=== PATIENT | female | born 1980 | race American Indian/Alaskan Native ===

== ENCOUNTER 2020-05-05 21:14 | Emergency (ER) | payer OTHER, MEDICAID, SELFPAY ==
[2020-05-05 21:24] VITALS: BP 147/88; PULSE 82; RESP 16; TEMP 36.8; O2SAT 99; BMI 48.8
[2020-05-05 22:05] LABS: UR Morphine/Opiate cutoff 300 Negative (Negative); Ur Creatinine 10 (Normal); Ur Specific Gravity 7 (Normal); Urine Amphetamines Positive (Negative); Urine Barbiturates Negative (Negative); Urine Benzodiazepines Negative (Negative); Urine Cocaine Negative (Negative); Urine MDMA Negative (Negative); Urine Methadone Negative (Negative); Urine Methamphetamines Negative (Negative); Urine Oxycodone Negative (Negative); Urine Phencyclidine Negative (Negative); Urine Tetrahydrocannabinol Negative (Negative); Urine Tricyclic Antidepressant Negative (Negative); Urine pH 5 (Normal)
--- NOTE | 2020-05-05 22:05 | DI.CT.S_ITS ---
PROCEDURE: CT HEAD/BRAIN WO CON INDICATIONS: not acting right confusion TECHNIQUE: Noncontrast 4.5 mm thick angled axial sections acquired from the foramen magnum to the vertex, with coronal and sagittal reformats. For radiation dose reduction, the following was used: automated exposure control, adjustment of mA and/or kV according to patient size. COMPARISON: None. FINDINGS: Image quality: Excellent. CSF spaces: Basal cisterns are patent. No extra-axial fluid collections. Ventricles are normal in size and shape. Brain: No midline shift. No intracranial masses or hemorrhage. Cabrera-white matter interface is normal. Skull and face: Calvarium and visualized facial bones are intact, without suspicious lesions. Sinuses: Visualized sinuses and mastoids are clear. IMPRESSION: No acute intracranial findings. These findings are concordant with the overnight interpretation. Dictated by: Sandy Harper M.D. on 05/06/2020 at 7:06 Approved by: Sandy Harper M.D. on 05/06/2020 at 7:06
--- NOTE | 2020-05-05 22:07 | DI.RAD.S_ITS ---
PROCEDURE: XR CHEST 1V INDICATIONS: chest pain TECHNIQUE: One view of the chest was acquired. COMPARISON: [facility], , CHEST 1 VIEW, 09/25/2010, 17:36. FINDINGS: Surgical changes and devices: None. Lungs and pleura: Lungs are clear. No pleural effusions or pneumothorax. Mediastinum: Mediastinal contours appear normal. Heart size is normal. Bones and chest wall: No suspicious bony lesions. Overlying soft tissues appear unremarkable. IMPRESSION: No acute cardiopulmonary findings. These findings are concordant with the overnight interpretation. Dictated by: Sandy Harper M.D. on 05/06/2020 at 7:07 Approved by: Sandy Harper M.D. on 05/06/2020 at 7:07
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
--- NOTE | 2020-05-05 22:34 | PC.NURSE ---
When asked if patient felt confused today patient said she had been working around house today and was very tired. Pt does interact flatly but is able to follow directions.
[2020-05-05] MEDS: SODIUM CHLORIDE 0.9% 1,000 ML 150 ML IV (22:52)
[2020-05-05 22:57] LABS: Add Manual Diff / Slide Review NO; Basophils Absolute Auto 0 /uL (0-100); Basophils Percent Auto 0.5 % (0-2); Eosinophils Absolute Auto 100 /uL (0-450); Eosinophils Percent Auto 0.8 % (2-4); Hematocrit 34.8 % (36-46); Hemoglobin 11.9 g/dL (12.0-16.0); Lymphocytes Absolute Auto 1600 /uL (1100-4500); Lymphocytes Percent Auto 22.8 % (25-40); Mean Corpuscular HGB Conc 34.3 % (30-36); Mean Corpuscular Hemoglobin 30.7 PG (26-34); Mean Corpuscular Volume 89.4 fL (80-100); Monocytes Absolute Auto 600 /uL (0-900); Monocytes Percent Auto 8.3 % (3-14); Neutrophils Absolute Auto 4700 /uL (1500-7000); Neutrophils Percent Auto 67.6 % (50-75); Platelet Count 213 X10^3/uL (150-400); Red Blood Cell Count 3.89 X10^6/uL (4.0-5.2); Red Cell Distribution Width 13.1 % (11.6-14.8); White Blood Cell Count 6.9 X10^3/uL (4.5-11.0)
[2020-05-05 23:02] LABS: Prothrombin Time 11.3 SECONDS (10.1-12.7)
[2020-05-05 23:04] LABS: PTT Partial Thromboplastin Tim 31 SECONDS (26.4-36.2)
[2020-05-05 23:05] LABS: Lactate (Lactic Acid) 0.7 mmol/L (0.7-2.1)
[2020-05-05 23:06] LABS: Acetaminophen 27 ug/mL (10-30); Alanine Aminotransferase 17 IU/L (<35); Albumin 3.6 g/dL (3.5-5.0); Albumin Globulin Ratio 1.6 (1.0-2.8); Alkaline Phosphatase 37 U/L (38-126); Aspartate Aminotransferase 23 IU/L (14-36); BUN Creatinine Ratio 29.2 (6-22); Bilirubin Total 0.1 mg/dL (0.2-1.3); Blood Urea Nitrogen 21 mg/dL (7-17); Calcium 8.8 mg/dL (8.4-10.2); Carbon Dioxide 28 mmol/L (22-32); Chloride 108 mmol/L (98-107); Creatine Kinase 100 U/L (30-135); Estimated Glomerular Filt Rate > 60.0 mL/min (>60); Ethanol (ETOH) < 10 mg/dL; Globulin 2.3 g/dL (1.7-4.1); Glucose 110 mg/dL (70-100); HEMOLYSIS 22 (0-50); Potassium 3.4 mmol/L (3.4-5.1); Salicylate < 1.0 mg/dL (<20); Sodium 138 mmol/L (137-145); Total Protein 5.9 g/dL (6.3-8.2)
[2020-05-05 23:16] LABS: Troponin I < 0.012 ng/mL (0.01-0.034)
[2020-05-05 23:20] LABS: Ammonia (NH3) < 9 umol/L (9-30)
[2020-05-05 23:21] LABS: Prolactin 27.6 ng/mL (3.0-18.6)
[2020-05-05 23:41] LABS: Thyroid Stimulating Hormone 0.785 uIU/mL (0.47-4.68)
[2020-05-06] VITALS: BP 133/89; PULSE 61; RESP 16; O2SAT 100
== END 2020-05-06 | disposition home or self-care (01) ==
PROVIDERS: Emergency Provider Emergency Medicine; PCP Physician Assistant
DX: R56.9 Unspecified convulsions (principal); R07.9 Chest pain, unspecified; R41.0 Disorientation, unspecified
CPT/HCPCS: 36415; 70450; 71045; 80053; 80305; 80320; 80329; 81003; 81025; 82140; 82550; 82553; 83605; 84146; 84443; 84484; 85025; 85610; 85730; 96360; 99284; G0480